=== PATIENT | male | born 1960 | race Caucasian/White ===

== ENCOUNTER 2020-08-17 20:03 | Emergency (ER) | payer BC, OTHER ==
--- NOTE | 2020-08-17 20:38 | EDM.PDOC ---
ED HPI GENERAL MEDICAL PROBLEM - General Chief Complaint: Lower Extremity Injury/Pain Stated Complaint: R LEG SWOLLEN Time Seen by Provider: 08/17/20 20:13 Source of Information: Reports: Patient History Limitations: Reports: No Limitations - History of Present Illness INITIAL COMMENTS - FREE TEXT/NARRATIVE: The patient presents for right leg swelling and pain. This has been going on for about 2 weeks. He does not remember hurting his knee. He has some pain to the right medial knee and behind the knee and there is some swelling in the lower leg. He says it feels unstable at times. He has no chest pain, shortness of breath, fever, chills, or cough. He has no history of DVTs or PEs. Onset: Gradual Duration: Week(s): Location: Reports: Lower Extremity, Right (knee and leg) Quality: Reports: Sharp Severity: Mild Improves with: Reports: Immobilization Worsens with: Reports: Movement Context: Denies: Trauma Associated Symptoms: Reports: No Other Symptoms - Related Data Allergies Allergy/AdvReac Type Severity Reaction Status Date / Time banana [Banana] Allergy Anaphylactic Verified 08/17/20 20:14 Shock kiwi Allergy Anaphylactic Verified 08/17/20 20:14 Shock Home Meds: Home Meds Pantoprazole [ProTONIX IV] 1 tab PO ASDIRECTED 08/17/20 [History] Sucralfate [Carafate] 1 gm PO ASDIRECTED 08/17/20 [History] Past Medical History HEENT History: Reports: Impaired Vision Cardiovascular History: Reports: None Respiratory History: Reports: None Gastrointestinal History: Reports: GERD Genitourinary History: Reports: None Musculoskeletal History: Reports: None Neurological History: Reports: None Psychiatric History: Reports: None Endocrine/Metabolic History: Reports: None Hematologic History: Reports: None Immunologic History: Reports: None Oncologic (Cancer) History: Reports: None Dermatologic History: Reports: None - Infectious Disease History Infectious Disease History: Reports: None - Past Surgical History Head Surgeries/Procedures: Reports: None HEENT Surgical History: Reports: Tonsillectomy Social & Family History - Family History Family Medical History: No Pertinent Family History - Tobacco Use Tobacco Use Status *Q: Never Tobacco User - Caffeine Use Caffeine Use: Reports: Coffee - Recreational Drug Use Recreational Drug Use: No Review of Systems - Review of Systems Review Of Systems: See Below Constitutional: Reports: No Symptoms Eyes: Reports: No Symptoms Ears: Reports: No Symptoms Nose: Reports: No Symptoms Mouth/Throat: Reports: No Symptoms Respiratory: Reports: No Symptoms Cardiovascular: Reports: No Symptoms GI/Abdominal: Reports: No Symptoms Genitourinary: Reports: No Symptoms Musculoskeletal: Reports: Other (Right knee and leg pain and edema) ED EXAM, GENERAL - Physical Exam Exam: See Below Exam Limited By: No Limitations General Appearance: Alert, No Apparent Distress Ears: Normal External Exam Nose: Normal Inspection Head: Atraumatic, Normocephalic Neck: Normal Inspection Respiratory/Chest: No Respiratory Distress, Lungs Clear, Normal Breath Sounds Cardiovascular: Regular Rate, Rhythm, No Edema, No Murmur GI/Abdominal: Soft, Non-Tender, No Organomegaly, No Mass Back Exam: Normal Inspection Extremities: Other (Mild edema to the right lower leg. Good sensation and pulsed distally. No pain upon palpation. Pain when stressing his anterior crutiate ligament and medial collateral ligaments.) Course - Vital Signs Last Recorded V/S: Last Vital Signs Temp 97.5 F 08/17/20 20:18 Pulse 57 L 08/17/20 20:18 Resp 18 08/17/20 20:18 BP 136/79 08/17/20 20:18 Pulse Ox 97 08/17/20 20:18 - Orders/Labs/Meds Orders: Active Orders 24 hr Category Date Time Status VL Duplex Lwr Ext Veins Ltd Rt [US] Stat Exams 08/17/20 20:31 Ordered - Re-Assessments/Exams Free Text/Narrative Re-Assessment/Exam: 08/17/20 20:38 I ordered an US of his right leg. 08/17/20 21:25 The US shows no DVT. I feel he may have sprained his knee. I will have him take tylenol or motrin for pain. Ice his knee and follow up with Dr Allen if he is not better within a week. Departure - Departure Time of Disposition: 21:30 Disposition: Home, Self-Care 01 Condition: Good Clinical Impression: Knee pain, acute Qualifiers: Laterality: right Qualified Code(s): M25.561 - Pain in right knee - Discharge Information *PRESCRIPTION DRUG MONITORING PROGRAM REVIEWED*: Not Applicable *COPY OF PRESCRIPTION DRUG MONITORING REPORT IN PATIENT EDUARDO: Not Applicable Referrals: Raina Mattson NP [Primary Care Provider] - Delano Allen MD [Physician] - 2 Weeks Forms: ED Department Discharge Additional Instructions: Take tylenol or motrin for pain. Ice your knee for 15 minutes 3 times per day for 2 days. Follow up with Dr Allen within 2 weeks if you are not any better. Please return if you are worse. Sepsis Event Note (ED) - Evaluation Sepsis Screening Result: No Definite Risk - Focused Exam Vital Signs: Vital Signs Temp Pulse Resp BP Pulse Ox 08/17/20 20:18 97.5 F 57 L 18 136/79 97 - My Orders Last 24 Hours: My Active Orders 08/17/20 20:31 VL Duplex Lwr Ext Veins Ltd Rt [US] Stat - Assessment/Plan Last 24 Hours: My Active Orders 08/17/20 20:31 VL Duplex Lwr Ext Veins Ltd Rt [US] Stat
--- NOTE | 2020-08-18 05:43 | US ---
Right lower extremity deep venous ultrasound: Duplex and color Doppler evaluation was obtained of the right common femoral, proximal greater saphenous, superficial femoral, popliteal, posterior tibial and peroneal veins. Left common femoral vein was also evaluated. Comparison: No prior venous imaging is available. Findings: Deep veins that are visualized show normal phasic flow, augmentation and compression. Impression: 1. No findings of deep venous thrombosis within the right lower extremity or within the left common femoral vein. Diagnostic code #1
== END 2020-08-17 21:33 | disposition home or self-care (01) ==
LOC: JD.ED 20:03
DX: M25.561 Pain in right knee (principal); K21.9 Gastro-esophageal reflux disease without esophagitis; Z91.018 Allergy to other foods; Z91.048 Other nonmedicinal substance allergy status; Z79.899 Other long term (current) drug therapy
CPT/HCPCS: 93971-26-RT; 93971-RT; 99283; 99283-25

== ENCOUNTER 2021-09-12 16:13 | Emergency (ER) | payer OTHER | END 2021-09-12 16:30 | disposition left against medical advice (07) | LOC: JD.ED 16:13 | DX: Z53.21 Procedure and treatment not carried out due to patient leaving prior to being seen by health care provider (principal) ==

== ENCOUNTER 2024-12-18 06:39 | Emergency (ER) | payer OTHER | END 2024-12-18 07:54 | disposition home or self-care (01) | LOC: JD.ED 06:39 | DX: S93.422A Sprain of deltoid ligament of left ankle, initial encounter (principal); S80.812A Abrasion, left lower leg, initial encounter; Z91.018 Allergy to other foods; Z79.899 Other long term (current) drug therapy; X50.1XXA Overexertion from prolonged static or awkward postures, initial encounter | CPT/HCPCS: 73610-26-LT; 73610-LT; 99283 ==